=== PATIENT | male | born 1965 | race Caucasian/White ===

== ENCOUNTER 2024-02-23 16:24 | Inpatient (IN) | payer SELFPAY ==
[2024-02-23] VITALS (22 sets, daily range): BP systolic 123–157; BP diastolic 78–103; PULSE 70–107; RESP 13–21; TEMP 36.2–36.8; O2SAT 92–100; BMI 33.9
--- NOTE | 2024-02-23 | XR_ITS ---
WS: [id number] Left hand, C-arm fluoroscopy views, 02/23/2024 Clinical Data: SYL PICS Comparison: Left hand, 02/23/2024 Findings: Dr. Son inserted a radiopaque pin into the radial base of the second metacarpal. XR/XR hand LT 2V [id number] Impression: Insertion of pin into base of left second metacarpal.
--- NOTE | 2024-02-23 16:24 | ECG_ITS ---
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 Measurements Intervals [place] Rate: 94 P: 65 [place]: 166 QRS: -77 QRSD: 89 T: 73 QT: 327 QTc: 410 Interpretive Statements SINUS RHYTHM POSSIBLE LEFT ATRIAL ENLARGEMENT [-0.1mV P-WAVE IN V1/V2] POSSIBLE RIGHT VENTRICULAR CONDUCTION DELAY [RSR (QR) IN V1/V2] INFERIOR MYOCARDIAL INFARCTION , OF INDETERMINATE AGE [40+ ms Q WAVE AND/OR ST/T ABNORMALITY IN II/aVF] No previous ECG available for comparison Electronically Signed On 02-24-2024 19:21:24 CDT by Bhargav Mulligan M.D. [id number]
--- NOTE | 2024-02-23 16:39 | XRR_ITS ---
PROCEDURE INFORMATION: Exam: XR Left Hand Exam date and time: 02/23/2024 5:11 PM Age: 59 years old Clinical indication: Injury or trauma; Other: Tractor; Blunt trauma (contusions or hematomas); Hand; Left; Additional info: Trauma PT presents after tractor incident. Patient was pinned and bent at the hip for approximately 10 minutes before help was able to get him unpinned. Patient states he was pulling a log in small tractor, when log caught and he was flipped backwards while riding tractor. Patient states that his ribs and back are in pain. Patient also has deformity to left forearm and laceration to left thumb. Bandaged by EMS TECHNIQUE: Imaging protocol: Radiologic exam of the left hand. Views: 3 or more views. COMPARISON: CR ([facility], ) 02/23/2024 5:11 PM FINDINGS: Bones/joints: Nondisplaced fracture through the base of the thumb. Soft tissues: Wound noted at the wrist. XR/XR hand LT min 3V* [id number] IMPRESSION: Nondisplaced fracture through the base of the thumb.
--- NOTE | 2024-02-23 16:39 | XRR_ITS ---
PROCEDURE INFORMATION: Exam: XR Left Forearm Exam date and time: 02/23/2024 5:11 PM Age: 59 years old Clinical indication: Injury or trauma; Other: Tractor; Blunt trauma (contusions or hematomas); Arm, lower; Left; Additional info: Trauma PT presents after tractor incident. Patient was pinned and bent at the hip for approximately 10 minutes before help was able to get him unpinned. Patient states he was pulling a log in small tractor, when log caught and he was flipped backwards while riding tractor. Patient states that his ribs and back are in pain. Patient also has deformity to left forearm and laceration to left thumb. Bandaged by EMS TECHNIQUE: Imaging protocol: Radiologic exam of the left forearm. Views: 2 views. COMPARISON: CR ([facility], ) 02/23/2024 5:11 PM FINDINGS: Bones/joints: Normal. Soft tissues: Wound along the wrist and distal forearm. XR/XR forearm LT 2V [id number] IMPRESSION: No acute osseous abnormalities.
--- NOTE | 2024-02-23 16:39 | CTR_ITS ---
PROCEDURE INFORMATION: Exam: CT Thoracic Spine Without Contrast Exam date and time: 02/23/2024 5:22 PM Age: 59 years old Clinical indication: Injury or trauma; Other: Tractor; Blunt trauma (contusions or hematomas); Additional info: Trauma PT presents after tractor incident. Patient was pinned and bent at the hip for approximately 10 minutes before help was able to get him unpinned. Patient states he was pulling a log in small tractor, when log caught and he was flipped backwards while riding tractor. Patient states that his ribs and back are in pain. Patient also has deformity to left forearm and laceration to left thumb. Bandaged by EMS TECHNIQUE: Imaging protocol: Computed tomography of the thoracic spine without contrast. Radiation optimization: All CT scans at this facility use at least one of these dose optimization techniques: automated exposure control; mA and/or kV adjustment per patient size (includes targeted exams where dose is matched to clinical indication); or iterative reconstruction. COMPARISON: CT chest abdpel w/*[id number] 02/23/2024 5:22 PM RADIATION DOSE METRICS: Total DLP (mGy-cm): 1174 FINDINGS: Bones/joints: No acute fracture. Normal alignment. No significant disc bulge or herniation. No severe spinal canal stenosis. No significant neural foraminal narrowing. Soft tissues: Unremarkable. CT/CT thoracic spin wo con* [id number] IMPRESSION: No acute findings.
--- NOTE | 2024-02-23 16:39 | CTR_ITS ---
PROCEDURE INFORMATION: Exam: CT Lumbar Spine Without Contrast Exam date and time: 02/23/2024 5:22 PM Age: 59 years old Clinical indication: Injury or trauma; Other: Tractor; Blunt trauma (contusions or hematomas); Additional info: Trauma PT presents after tractor incident. Patient was pinned and bent at the hip for approximately 10 minutes before help was able to get him unpinned. Patient states he was pulling a log in small tractor, when log caught and he was flipped backwards while riding tractor. Patient states that his ribs and back are in pain. Patient also has deformity to left forearm and laceration to left thumb. Bandaged by EMS TECHNIQUE: Imaging protocol: Computed tomography of the lumbar spine without contrast. Radiation optimization: All CT scans at this facility use at least one of these dose optimization techniques: automated exposure control; mA and/or kV adjustment per patient size (includes targeted exams where dose is matched to clinical indication); or iterative reconstruction. COMPARISON: CT chest abdpel w/*[id number] 02/23/2024 5:22 PM RADIATION DOSE METRICS: Total DLP (mGy-cm): 864.8 FINDINGS: Bones/joints: No acute fracture. Normal alignment. No significant disc bulge or herniation. No severe spinal canal stenosis. Soft tissues: Unremarkable. CT/CT lumbar spine wo con* [id number] IMPRESSION: No acute findings.
--- NOTE | 2024-02-23 16:39 | XRR_ITS ---
PROCEDURE INFORMATION: Exam: XR Chest Exam date and time: 02/23/2024 5:35 PM Age: 59 years old Clinical indication: Injury or trauma; Blunt trauma (contusions or hematomas); Injury date: 02/23/24; Patient HX: Tractor rolled over on him; C/O chest, abd, back and left arm pain; TECHNIQUE: Imaging protocol: Radiologic exam of the chest. Views: 1 view. COMPARISON: CT chest abdpel w/*[id number] 02/23/2024 5:22 PM FINDINGS: Lungs: Unremarkable. No consolidation. Pleural spaces: Unremarkable. No pleural effusion. No pneumothorax. Heart/Mediastinum: Unremarkable. No cardiomegaly. Bones/joints: Unremarkable. XR/XR chest 1V portable [id number] IMPRESSION: No acute findings.
--- NOTE | 2024-02-23 16:39 | CTR_ITS ---
PROCEDURE INFORMATION: Exam: CT Chest With Contrast; Diagnostic Exam date and time: 02/23/2024 5:22 PM Age: 59 years old Clinical indication: Injury or trauma; Other: Tractor; Generalized; Blunt trauma (contusions or hematomas); Additional info: Trauma PT presents after tractor incident. Patient was pinned and bent at the hip for approximately 10 minutes before help was able to get him unpinned. Patient states he was pulling a log in small tractor, when log caught and he was flipped backwards while riding tractor. Patient states that his ribs and back are in pain. Patient also has deformity to left forearm and laceration to left thumb. Bandaged by EMS TECHNIQUE: Imaging protocol: Diagnostic computed tomography of the chest with contrast. Radiation optimization: All CT scans at this facility use at least one of these dose optimization techniques: automated exposure control; mA and/or kV adjustment per patient size (includes targeted exams where dose is matched to clinical indication); or iterative reconstruction. Contrast material: OMNI 350; Contrast volume: 100 ml; Contrast route: INTRAVENOUS (IV); COMPARISON: CT thoracic spin wo con* [id number] 02/23/2024 5:22 PM RADIATION DOSE METRICS: Total DLP (mGy-cm): 1552.3 FINDINGS: Lungs: Unremarkable. No consolidation. No masses. Pleural spaces: Unremarkable. No pneumothorax. No pleural effusion. Heart: Unremarkable. No cardiomegaly. No pericardial effusion. Lymph nodes: Unremarkable. No enlarged lymph nodes. Vasculature: Unremarkable. No aortic aneurysm. Bones/joints: Unremarkable. No acute fracture. Soft tissues: Unremarkable. PROCEDURE INFORMATION: Exam: CT Abdomen And Pelvis With Contrast Exam date and time: 02/23/2024 5:22 PM Age: 59 years old Clinical indication: Injury or trauma; Other: Tractor; Generalized; Blunt trauma (contusions or hematomas); Additional info: Trauma PT presents after tractor incident. Patient was pinned and bent at the hip for approximately 10 minutes before help was able to get him unpinned. Patient states he was pulling a log in small tractor, when log caught and he was flipped backwards while riding tractor. Patient states that his ribs and back are in pain. Patient also has deformity to left forearm and laceration to left thumb. Bandaged by EMS TECHNIQUE: Imaging protocol: Computed tomography of the abdomen and pelvis with contrast. Radiation optimization: All CT scans at this facility use at least one of these dose optimization techniques: automated exposure control; mA and/or kV adjustment per patient size (includes targeted exams where dose is matched to clinical indication); or iterative reconstruction. Contrast material: OMNI 350; Contrast volume: 100 ml; Contrast route: INTRAVENOUS (IV); COMPARISON: CT lumbar spine wo con* [id number] 02/23/2024 5:22 PM RADIATION DOSE METRICS: Total DLP (mGy-cm): 1552.3 FINDINGS: Liver: Normal. No mass. Gallbladder and biliary ducts: Normal. No calcified stones. No ductal dilation. Pancreas: Normal. No ductal dilation. Spleen: Normal. No splenomegaly. Adrenal glands: Normal. No mass. Kidneys and ureters: A couple cysts noted in the left kidney measuring up to 1.5 cm in size. No hydronephrosis. Stomach and bowel: Unremarkable. No obstruction. No mucosal thickening. Appendix: No evidence of appendicitis. Intraperitoneal space: Unremarkable. No free air. No significant fluid collection. Vasculature: Unremarkable. No abdominal aortic aneurysm. Lymph nodes: Unremarkable. No enlarged lymph nodes. Urinary bladder: Unremarkable as visualized. Reproductive: Unremarkable as visualized. Bones/joints: No acute fracture. Soft tissues: Unremarkable. CT/CT chest abdpel w/*[id number] IMPRESSION: No acute traumatic intrathoracic findings. IMPRESSION: No acute traumatic intra-abdominal findings. COMMENTS: Consistent with the [employer]'s Incidental Findings Committee white paper (J Am Ezequiel Radiol 2018): Any incidental renal lesion less than 1 cm or classified as too small to characterize, or any incidental cystic renal lesion characterized as simple-appearing, is likely benign. No follow-up imaging is recommended for these lesions per consensus recommendations based on imaging criteria.
--- NOTE | 2024-02-23 16:43 | CTR_ITS ---
PROCEDURE INFORMATION: Exam: CT Head Without Contrast Exam date and time: 02/23/2024 5:17 PM Age: 59 years old Clinical indication: Injury or trauma; Other: Tractor; Blunt trauma (contusions or hematomas); Additional info: Trauma PT presents after tractor incident. Patient was pinned and bent at the hip for approximately 10 minutes before help was able to get him unpinned. Patient states he was pulling a log in small tractor, when log caught and he was flipped backwards while riding tractor. Patient states that his ribs and back are in pain. Patient also has deformity to left forearm and laceration to left thumb. Bandaged by EMS TECHNIQUE: Imaging protocol: Computed tomography of the head without contrast. Radiation optimization: All CT scans at this facility use at least one of these dose optimization techniques: automated exposure control; mA and/or kV adjustment per patient size (includes targeted exams where dose is matched to clinical indication); or iterative reconstruction. COMPARISON: CT cervical spin wo con* [id number] 02/23/2024 5:17 PM RADIATION DOSE METRICS: Total DLP (mGy-cm): 1142.2 FINDINGS: Brain: No hemorrhage. No edema. Moderate diffuse cerebral atrophy and mild sequela of chronic small vessel ischemic disease. No mass effect. Cerebral ventricles: No ventriculomegaly. Paranasal sinuses: Visualized sinuses are unremarkable. No fluid levels. Mastoid air cells: Visualized mastoid air cells are well aerated. Bones: Unremarkable. No acute fracture. Soft tissues: Unremarkable. CT/CT head wo con* [id number] IMPRESSION: No acute intracranial abnormality.
--- NOTE | 2024-02-23 16:43 | CTR_ITS ---
PROCEDURE INFORMATION: Exam: CT Cervical Spine Without Contrast Exam date and time: 02/23/2024 5:17 PM Age: 59 years old Clinical indication: Injury or trauma; Other: Tractor; Blunt trauma TECHNIQUE: Imaging protocol: Computed tomography of the cervical spine without contrast. Radiation optimization: All CT scans at this facility use at least one of these dose optimization techniques: automated exposure control; mA and/or kV adjustment per patient size (includes targeted exams where dose is matched to clinical indication); or iterative reconstruction. COMPARISON: CT head wo con* [id number] 02/23/2024 5:17 PM RADIATION DOSE METRICS: Total DLP (mGy-cm): 541.6 FINDINGS: Bones: No acute fracture. Normal alignment. No severe spinal canal stenosis. Lungs: Lung apices are normal. Soft tissues: Unremarkable. CT/CT cervical spin wo con* [id number] IMPRESSION: No acute findings.
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
[2024-02-23] MEDS: sodium chloride 0.9% 1,000 ML 999 ML IV (16:46)
[2024-02-23] MEDS: HYDROmorphone 1 mg/mL INJ 1 mL 0.5 MG IVP (16:47)
[2024-02-23] MEDS: tetanus-dipt-pertussis 0.5 mL SDV IM (16:48)
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
[2024-02-23 17:16] LABS: Basophils # 0.1 10^3/uL (0.0-0.1); Basophils % 0.3 %; Eosinophils % 0.2 %; Hematocrit 40.8 % (37-53); Lymphocytes # 0.8 10^3/uL (0.8-4.8); Lymphocytes % 3.8 %; Mean Corpuscular HGB Conc 34.3 g/dL (30-55); Mean Corpuscular Hemoglobin 29.7 pg (27-33); Mean Corpuscular Volume 86.6 fl (82-101); Monocytes # 1.3 10^3/uL (0.2-0.9); Monocytes % 6.4 %; Neutrophils # 18.25 10^3/uL (1.8-7.7); Neutrophils % 88.8 %; Nucleated Red Blood Cells % 0 %; Platelet Count 285 10^3/cmm (157-399); Red Blood Count 4.71 10^6/uL (3.85-5.65); Red Cell Distribution Width 12.7 % (12.1-15.1); White Blood Count 20.56 10^3/uL (3.29-11.43)
[2024-02-23] MEDS: iohexol 350 mg/mL 500 mL Btl (per mL) IV (17:30)
[2024-02-23 17:36] LABS: Lactic Sepsis W/Reflex 1.1 mmol/L (0.5-2.2)
[2024-02-23 17:38] LABS: Alanine Aminotransferase 20 U/L (0-41); Albumin Level 3.9 g/dL (3.5-5.2); Alkaline Phosphatase 108 U/L (40-130); Anion Gap 11.5 (5-19); Aspartate Amino Transferase 33 U/L (0-40); Blood Urea Nitrogen 16 mg/dL (6-20); Calcium 7.9 mg/dL (8.5-10.5); Carbon Dioxide 22 mmol/L (22-29); Chloride 106 mmol/L (98-107); Creatinine Clr Calc Pharmacy 96.6557; Globulin 2.4 g/dL (1.3-4.6); Glomerular Filtration Rate 86.7 mL/min (90-130); Glucose 136 mg/dL (65-115); Osmolality Calculated 285 mOsm/kg (285-295); Potassium 3.5 mmol/L (3.5-5.1); Sodium 136 mmol/L (136-145); Total Bilirubin 0.6 mg/dL (0.15-1.2); Total Protein 6.3 g/dL (6.6-8.7)
[2024-02-23 17:39] LABS: Creatine Phosphokinase 1147 U/L (39-308)
--- NOTE | 2024-02-23 17:46 | PC.NURSE ---
PATIENT LEFT HAND CLEANED WITH NORMAL SALINE AND GAUZE. LEFT TO SOAK TO REMOVE MORE DRIED BLOOD.
[2024-02-23] MEDS: ceFAZolin 2,000 MG in sodium chloride 0.9% (plus) 50 ML 100 MG IV (18:08)
[2024-02-23] MEDS: sodium chloride 0.9% 1,000 ML 150 ML IV (18:08)
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
[2024-02-23 20:31] LABS: Procalcitonin 0.07 ng/mL (0-0.5)
[2024-02-23 20:38] LABS: INR 0.97 (0.8-1.2); Lactic Sepsis W/Reflex 1.7 mmol/L (0.5-2.2)
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
--- NOTE | 2024-02-23 20:43 | P.ANESASSM_ITS ---
Pre-Anesthetic Assessment Height/Weight: Height 1.68 m Weight 95.254 kg Temp Pulse Resp BP Pulse Ox O2 Del Method 98.3 F 88 17 146/87 96 Room Air 02/23/24 16:33 02/23/24 19:30 02/23/24 19:30 02/23/24 19:45 02/23/24 19:30 02/23/24 19:28 Operation Date: 02/23/24 20:40 Proposed Procedures p Incision & Drainage Upper Extremity(Left) - Ji [place], DO Familial anesthetic complications: None Was Beta Bernabe taken within 24 hours: N/A Was Clonidine taken within 24 hours: N/A Last intake: 2 days ago Social Tobacco and No alcohol Exam alert, oriented x 3, clear to auscultation bilaterally and regular rate & rhythm Airway Mallampati: Class II Dentition: other (no teeth) Anesthetic Plan ASA status: 2E Anesthesia: General Risk of > 500 ml blood loss (7ml/kg in children): No Medications/Allergies Allergies Allergy/AdvReac Type Severity Reaction Status Date / Time No Known Allergies Allergy Verified 02/23/24 16:31 Current Medications Generic Name Dose Route Start Last Admin Trade Name Freq PRN Reason Stop Dose Admin Sodium Chloride 1,000 mls @ 150 mls/hr 02/23/24 18:00 02/23/24 18:08 Sodium Chloride 0.9% IV 150 mls/hr .Q6H40M BERTRAM Administration Data Anesthesia 02/23/24 17:07 02/23/24 17:07 Short CBC 02/23/24 Range/Units 17:07 WBC 20.56 H (3.29-11.43) 10^3/uL Hgb 14.00 (11.27-16.99) g/dL Hct 40.8 (37-53) % MCV 86.6 (82-101) fl Plt Count 285 (157-399) 10^3/cmm Neut % (Auto) 88.8 % Neut # (Auto) 18.25 H (1.8-7.7) 10^3/uL BMP 02/23/24 17:07 Sodium 136 Potassium 3.5 Chloride 106 Carbon Dioxide 22 BUN 16 Creatinine 0.9 Glucose 136 H Calcium 7.9 L Cardiac Enzymes 02/23/24 Range/Units 17:07 Creatine Kinase 1147 H* (39-308) U/L Liver Function 02/23/24 Range/Units 17:07 Total Bilirubin 0.6 (0.15-1.2) mg/dL AST 33 (0-40) U/L ALT 20 (0-41) U/L Alkaline Phosphatase 108 (40-130) U/L Albumin 3.9 (3.5-5.2) g/dL Blood Bank 02/23/24 17:07 Blood Type O Positive Rho(D) Type Rh positive Antibody Screen Negative Coags 02/23/24 20:11 PT 13.20 INR 0.97 Microbiology 02/23/24 20:11 Blood Culture - Preliminary Blood SPECIMEN COLLECTED 02/23/24 20:13 Blood Culture - Preliminary Blood SPECIMEN COLLECTED Cardiac Studies: 2 No Data to Display
[2024-02-23] MEDS: ceFAZolin 1,000 mg SDV 2000 MG IVP (21:20)
--- NOTE | 2024-02-23 23:11 | P.BOP_ITS ---
Date of Procedure: [02/23/2024] Surgeon: Ji Son DO Student Records Specialist(s): Jayme Son PA-C Procedure(s) performed: Left wrist and forearm I&D (18 cm x 8 cm x 4 cm (debridement of skin subcutaneous tissue fascia and tendon) Left wrist de Quervain's release Left second metacarpal closed reduction and percutaneous pinning Findings of the procedure(s): Patient was taken back to the OR and underwent I&D extensive I&D for evaluation of subcutaneous air. Patient did have a straight stripping of the gloving of the thenar musculature off of the first metacarpal. This created a tunnel all the way into the proximal portion of the carpal tunnel. Within this wound there were 2 large muscle bellies attached with tendon these were the FDS tendons of the ring and small finger. These were completely stripped with tearing directly off of the muscle bellies proximally. I extended my incision proximally and then created a dissection in the volar plane performing a standard FCR approach I found FCR mobilized this which was intact open the floor the sheath and then identified the FPL which was intact I then mobilized and then once again found the 2 superficial FDS tendons to the ring and small which were completely tore from the muscle belly and unable to be repaired prior to transecting these I have further my dissection and identified the FDP tendons to the small ring middle and index finger which were all intact which would allow for standard function of the hand being to profundus fingers to the ring and the small. As result given this was completely stripped and devitalized of all muscle and unable to be repaired and did not want this to scar within the carpal tunnel where this was currently lying I then subsequently pulled this under tension and transected the FDS to the ring and small finger. At this point I then thoroughly irrigated the wound bed 3 L normal saline. I then identified the nondisplaced first base of the first metacarpal this was not unstable and as result was left alone I then identified the large fracture fragment on the dorsal and radial aspect of the base of the second metacarpal this was out allowable being reduced manually and given its displacement I utilized a 0.45 K wire while holding the reduction and then pinned this in place. Underwent closed reduction percutaneous pinning second metacarpal. Splint was applied patient was awakened from anesthesia and taken to PACU in stable condition. Estimated blood loss: 10 mL Specimen(s) removed: None Post-operative diagnosis: Crush injury left wrist and forearm with Butts Jignesh lesion, left hand second metacarpal fracture, left hand base of first metacarpal fracture, multiple carpal bone fractures, FDS tendon lacerations proximal to zone 5 within the muscle bellies for the ring and small finger
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
--- NOTE | 2024-02-23 23:55 | PM.PACU ---
Documented by User: SADIE Bacon 02/24/24 00:03 PACU note Narrative: Patient is a 59-year-old male that just underwent a left forearm and wrist irrigation and debridement. Patient transferred to PACU in stable condition. Pain is well controlled. Dressing on hand is dry and in place. Patient's fingers are warm and well-perfused. normal cap refill under 2 seconds. Unable to assess sensation or motor due to residual anesthesia Exam: somnolent, arousable Disposition: admitted Documented by User: Ji Son DO 02/24/24 08:32 PACU note Narrative: Patient is a 59-year-old male that just underwent a left forearm and wrist irrigation and debridement. Patient transferred to PACU in stable condition. Pain is well controlled. Dressing on hand is dry and in place. Patient's fingers are warm and well-perfused. normal cap refill under 2 seconds. 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 Will reassess him tomorrow.
[2024-02-24] VITALS (13 sets, daily range): BP systolic 105–147; BP diastolic 66–95; PULSE 79–106; RESP 13–20; TEMP 36.2–36.8; O2SAT 93–98; BMI 33.9
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
[2024-02-24] MEDS: sodium chloride 0.9% 1,000 ML 150 ML IV ×2 (01:45→09:00)
[2024-02-24] MEDS: ketorolac 30 mg/mL INJ 15 MG IVP ×4 (01:45→17:59)
[2024-02-24 02:49] LABS: Amphetamines Screen Urine Positive (Negative); Barbiturates Screen Urine Negative (Negative); Benzodiazepines Screen Urine Positive (Negative); Cocaine Screen Urine Negative (Negative); Opiate Screen Urine Positive (Negative); PCP Screen Urine Negative (Negative); THC Screen Urine Positive (Negative)
[2024-02-24 03:07] LABS: Add Urine Microscopic? YES; Bacteria Urine 1+ /hpf; Bilirubin Urine 1+ (Negative); Blood Urine Neg (Negative); Glucose Urine UA Trace (Normal); Hyaline Casts Urine 0-4 /lpf; Ketones Urine Negative (Negative); Leukocyte Esterase Urine Negative (Negative); Nitrate Urine Negative (Negative); Protein Urine Trace (Negative); RBC Urine 0-4 /hpf (0-2); Sperm Urine 1+ /hpf; Squamous Epithelial Cell Urine 0-4 /hpf (0-5); Urine Appearance Cloudy (CLEAR); Urine Color Dark Yellow (Yellow); Urobilinogen Urine Neg (Negative); WBC Urine 0-4 /hpf (0-5); pH Urine 5 (5-7)
[2024-02-24 03:37] LABS: Basophils % 0.1 %; Hematocrit 41.5 % (37-53); Lymphocytes # 0.6 10^3/uL (0.8-4.8); Lymphocytes % 4.7 %; Mean Corpuscular HGB Conc 32.3 g/dL (30-55); Mean Corpuscular Hemoglobin 28.9 pg (27-33); Mean Corpuscular Volume 89.4 fl (82-101); Monocytes # 0.5 10^3/uL (0.2-0.9); Monocytes % 4.3 %; Neutrophils # 11.04 10^3/uL (1.8-7.7); Neutrophils % 90.6 %; Nucleated Red Blood Cells % 0 %; Platelet Count 263 10^3/cmm (157-399); Red Blood Count 4.64 10^6/uL (3.85-5.65); Red Cell Distribution Width 13.1 % (12.1-15.1); White Blood Count 12.18 10^3/uL (3.29-11.43)
[2024-02-24 04:01] LABS: Alanine Aminotransferase 22 U/L (0-41); Albumin Level 3.8 g/dL (3.5-5.2); Alkaline Phosphatase 106 U/L (40-130); Anion Gap 14.6 (5-19); Aspartate Amino Transferase 45 U/L (0-40); Blood Urea Nitrogen 13 mg/dL (6-20); Calcium 7.8 mg/dL (8.5-10.5); Carbon Dioxide 20 mmol/L (22-29); Chloride 106 mmol/L (98-107); Creatinine Clr Calc Pharmacy 96.6557; Globulin 2.5 g/dL (1.3-4.6); Glomerular Filtration Rate 86.7 mL/min (90-130); Glucose 188 mg/dL (65-115); Osmolality Calculated 287 mOsm/kg (285-295); Potassium 4.6 mmol/L (3.5-5.1); Sodium 136 mmol/L (136-145); Total Bilirubin 0.6 mg/dL (0.15-1.2); Total Protein 6.3 g/dL (6.6-8.7)
[2024-02-24 04:05] LABS: Creatine Phosphokinase 1962 U/L (39-308)
[2024-02-24] MEDS: water for injection-sterile 20 ML 6 ML ×2 (04:55→21:36)
[2024-02-24] MEDS: ceFAZolin 2,000 mg SDV 2000 MG IVP ×3 (04:55→21:35)
[2024-02-24] MEDS: oxyCODONE 5 mg IR Tab/Cap PO ×3 (06:47→18:03)
[2024-02-24] MEDS: TRAMadol 50 mg Tablet PO (09:03)
[2024-02-24 10:06] LABS: Creatine Phosphokinase 1904 U/L (39-308)
--- NOTE | 2024-02-24 10:15 | P.PN_ITS ---
Subjective 2 Subjective: Patient seen and examined this morning. Pain is controlled with medications. He is able to wiggle all of his fingers and sensations intact light touch distally. At this point in time he is currently being monitored for rhabdo myelitis as a CK was around 1900 today. This will continue to be monitored spoke with hospitalist and planning for additional day of hospitalization for monitoring for pain control as well as rhabdomyolysis Vitals/I&O/Wt Last Vital Signs Temp 98.3 F 02/24/24 05:14 Pulse 106 H 02/24/24 07:47 Resp 17 02/24/24 07:47 BP 141/90 02/24/24 07:47 Pulse Ox 96 02/24/24 07:47 O2 Del Method Room Air 02/24/24 07:47 O2 Flow Rate 6 02/23/24 23:47 02/23/24 02/24/24 02/24/24 22:59 06:59 14:59 Intake Total 1050 / 1050 1300 / 2350 1020 / 1020 Output Total 840 / 840 Balance 1050 / 1050 460 / 1510 1020 / 1020 Weight last 48 hrs Weight 210 lb Weight 210 lb Physical Exam 2 Narrative: Dressing order placed to the left upper extremity with clean dry and intact Jacinto wrap was slightly tight and subsequently loosened. Splint left arm in place. Drain was left in place today just to allow for an additional day for mild drainage patient's hand is warm well-perfused when Jacinto wrap was loosened was able to palpate compartments which are soft and compressible. His fingertips are warm well-perfused brisk capillary refill less than 2 seconds sensations intact light touch distally he is able to wiggle all 5 digits. Unable to palpate pulse secondary to splint. Patient able to tolerate passive range of motion of the digits with no pain or discomfort or pain out of proportion. Data 02/24/24 03:13 02/24/24 03:13 Micro: Microbiology 02/23/24 20:11 Blood Culture - Preliminary Blood SPECIMEN COLLECTED 02/23/24 20:13 Blood Culture - Preliminary Blood SPECIMEN COLLECTED A&P Assessment and plan (1) Fracture of base of first metacarpal: Qualifiers: Encounter type: initial encounter Fracture alignment: nondisplaced F racture type: open Laterality: left (2) Fracture of second metacarpal bone: (3) Elevated CK: (4) Butts Jignesh lesion: (5) Crush injury arm: (6) Polysubstance abuse: Plan Postoperative day 1 left wrist and forearm irrigation and debridement. CRPP second metacarpal Splint on in place Jacinto wrap loosened today Plan to pull Ligia drain tomorrow Elevation and ice PT/OT Encourage wiggling her fingers as well as elbow range of motion Continue with pain control Internal medicine on board as primary Prophylactic antibiotics Orthopedics will continue to follow Attestations 2 Medical Necessity Statement*: Ongoing care status post crush injury upper extremity at wrist and forearm, patient has elevated CK being managed by hospitalist Coding Level of Care Code Acute Code for [facility] Diagnoses Fracture of base of first metacarpal S62.233A Encounter type: initial encounter Fracture alignment: nondisplaced Fracture type: open Laterality: left Fracture of second metacarpal bone S62.308A Elevated CK R74.8 Butts Jignesh lesion T14.8XXA Crush injury arm S47.9XXA Polysubstance abuse F19.10 Time Spent (min) 20
[2024-02-24] MEDS: nicotine 21 mg Patch 1 PATCH TRANSDERMA (10:45)
[2024-02-24] MEDS: HYDROmorphone 1 mg/mL INJ 1 mL 0.2 MG IVP (10:45)
--- NOTE | 2024-02-24 11:23 | P.PN_ITS ---
Subjective 2 Subjective: Repeat CPK around 1900 Plan to keep patient in the hospital for pain management and monitor of rhabdomyolysis Monitor for compartment syndrome Drain in place Patient complaining of pain added Dilaudid 0.2 mg every 4 hours Vitals/I&O/Wt Last Vital Signs Temp 97.7 F 02/24/24 10:59 Pulse 91 02/24/24 10:59 Resp 17 02/24/24 10:59 BP 105/69 02/24/24 10:59 Pulse Ox 94 02/24/24 10:59 O2 Del Method Room Air 02/24/24 10:59 O2 Flow Rate 6 02/23/24 23:47 02/23/24 02/24/24 02/24/24 22:59 06:59 14:59 Intake Total 1050 / 1050 1300 / 2350 1020 / 1020 Output Total 840 / 840 Balance 1050 / 1050 460 / 1510 1020 / 1020 Weight last 48 hrs Weight 95.254 kg Weight 95.254 kg Physical Exam 2 Narrative: Patient awake and alert Left arm covered with dressing No sign of vascular compromise noted of left hand Awake and alert Nonfocal neuroexam Hemodynamically stable Currently room air Data 02/24/24 03:13 02/24/24 03:13 Micro: Microbiology 02/23/24 20:11 Blood Culture - Preliminary Blood SPECIMEN COLLECTED 02/23/24 20:13 Blood Culture - Preliminary Blood SPECIMEN COLLECTED A&P Assessment and plan (1) Leukocytosis: (2) Fracture of base of first metacarpal: Qualifiers: Encounter type: initial encounter Fracture alignment: nondisplaced F racture type: open Laterality: left (3) Fracture of second metacarpal bone: (4) Elevated CK: (5) Butts Jignesh lesion: (6) Crush injury arm: (7) Polysubstance abuse: Plan Crush injury of left arm and hand Contusion of bone Status post left wrist and forearm I&D left second metacarpal closed reduction percutaneous pinning Drain in place Continue vancomycin and Zosyn Muscle injury/crush injury Continue normal saline at 100 mill per hour Monitor CPK Monitor for signs of compartment syndrome Polysubstance abuse Positive for marijuana and methamphetamine No active signs of encephalopathy Spoke with Dr. Son's plan to release patient on Sunday if remains stable Full code Nicotine patch added Full code Attestations 2 Medical Necessity Statement*: Discharge likely Sunday Diagnoses Leukocytosis D72.829 Fracture of base of first metacarpal S62.233A Encounter type: initial encounter Fracture alignment: nondisplaced Fracture type: open Laterality: left Fracture of second metacarpal bone S62.308A Elevated CK R74.8 Butts Jignesh lesion T14.8XXA Crush injury arm S47.9XXA Polysubstance abuse F19.10
[2024-02-24] MEDS: piperacillin-tazobactam 3.375 GM in sodium chloride 0.9% (plus) 50 ML IV ×2 (12:27→19:52)
[2024-02-24] MEDS: water for injection-sterile 20 ML 100 ML (12:27)
[2024-02-24] MEDS: ondansetron 2 mg/ML SDV 2 mL 4 MG IVP ×2 (12:42→21:54)
[2024-02-24] MEDS: metoclopramide 5 mg/mL SDV 2 mL IVP (16:23)
[2024-02-24] MEDS: sodium chloride 0.9% 1,000 ML 100 ML IV (16:25)
[2024-02-24] MEDS: pantoprazole 40 mg SDV IVP (19:53)
[2024-02-25] VITALS: BP 114/70; PULSE 111; RESP 18; TEMP 36.8; O2SAT 95
[2024-02-25] MEDS: ketorolac 30 mg/mL INJ 15 MG IVP ×2 (00:37→06:16)
[2024-02-25 01:00] VITALS: BP 114/70; PULSE 111; RESP 18; TEMP 36.8; O2SAT 95
[2024-02-25] MEDS: sodium chloride 0.9% 1,000 ML 100 ML IV (02:09)
[2024-02-25 04:00] VITALS: BP 131/85; PULSE 112; RESP 18; TEMP 36.9; O2SAT 98
[2024-02-25] MEDS: piperacillin-tazobactam 3.375 GM in sodium chloride 0.9% (plus) 50 ML IV (04:06)
[2024-02-25 05:27] LABS: Basophils % 0.4 %; Eosinophils # 0.2 10^3/uL (0.0-0.8); Eosinophils % 1.3 %; Hematocrit 39.3 % (37-53); Lymphocytes # 1.6 10^3/uL (0.8-4.8); Lymphocytes % 14.6 %; Mean Corpuscular Hemoglobin 28.9 pg (27-33); Mean Corpuscular Volume 93.1 fl (82-101); Mean Platelet Volume 9.3 fL (7.4-10.4); Monocytes # 0.9 10^3/uL (0.2-0.9); Monocytes % 8.1 %; Neutrophils # 8.47 10^3/uL (1.8-7.7); Neutrophils % 75.1 %; Nucleated Red Blood Cells % 0 %; Platelet Count 224 10^3/cmm (157-399); Red Blood Count 4.22 10^6/uL (3.85-5.65); Red Cell Distribution Width 13.4 % (12.1-15.1); White Blood Count 11.27 10^3/uL (3.29-11.43)
[2024-02-25 05:41] LABS: Blood Urea Nitrogen 12 mg/dL (6-20); Calcium 7.6 mg/dL (8.5-10.5); Carbon Dioxide 21 mmol/L (22-29); Chloride 107 mmol/L (98-107); Creatinine Clr Calc Pharmacy 124.2717; Glomerular Filtration Rate 115.8 mL/min (90-130); Glucose 95 mg/dL (65-115); Osmolality Calculated 280 mOsm/kg (285-295); Sodium 135 mmol/L (136-145)
[2024-02-25 05:44] LABS: Anion Gap 11.1 (5-19); Potassium 4.1 mmol/L (3.5-5.1)
[2024-02-25 07:32] VITALS: BP 150/70; PULSE 105; RESP 17; O2SAT 96
[2024-02-25] MEDS: HYDROmorphone 1 mg/mL INJ 1 mL 0.2 MG IVP (08:22)
--- NOTE | 2024-02-25 09:00 | PC.NURSE ---
At bedside to assist Dr. Son in dressing change and drain removal. Dr. Son removed outer DEISY wraps and ABD pad, removed drain, and covered site with ABD and clean DEISY wraps. He provided education on elevation and ice to control swelling and pain, even after d/c. He asked that patient f/u with him in 2 weeks to which patient was in agreement. I informed patient that Dr. Watts was also going to f/u with him prior to d/c and he is in agreement with that as well. He denies further questions or concerns at this time.
--- NOTE | 2024-02-25 09:05 | P.PN_ITS ---
Subjective 2 Subjective: Patient seen and examined this morning I was contacted that he was threatening to leave AMA currently does have a [place] drain. Expressed importance of him being cleared by medicine prior to discharge. [place] drain was pulled today without any issues or complications he is tolerated this well. He is cleared from an orthopedic standpoint for discharge Vitals/I&O/Wt Last Vital Signs Temp 98.5 F 02/25/24 04:00 Pulse 105 H 02/25/24 07:32 Resp 17 02/25/24 07:32 BP 150/70 02/25/24 07:32 Pulse Ox 96 02/25/24 07:32 O2 Del Method Room Air 02/25/24 07:32 O2 Flow Rate 6 02/23/24 23:47 02/24/24 02/25/24 02/25/24 22:59 06:59 14:59 Intake Total 361.667 / 2046.667 1043.333 / 3090.000 290 / 290 Balance 361.667 / 2046.667 1043.333 / 3090.000 290 / 290 Weight last 48 hrs Weight 210 lb Weight 210 lb Physical Exam 2 Narrative: Dressing order placed to the left upper extremity with clean dry and intact. [place] drain was subsequently pulled uneventfully without issues. Patient had only minimal bloody drainage appreciated and new ABD dressing was placed dorsally over the dressing I did loosen and remove all of the old Jacnito wrap's and then applied a new clean Jacinto wrap with an ABD over the dressing. While dressing was down I was able to palpate patient's compartments of the forearm as well as the hand these are all soft and compressible. His swelling is improving. His fingertips are warm well-perfused brisk capillary refill less than 2 seconds sensations intact light touch distally he is able to wiggle all 5 digits. Unable to palpate pulse secondary to splint/dressing. Patient able to tolerate passive range of motion of the digits with no pain or discomfort or pain out of proportion. Data 02/25/24 04:56 02/25/24 04:56 Micro: Microbiology 02/23/24 20:13 Blood Culture - Preliminary Blood NEGATIVE TO DATE 02/23/24 20:11 Blood Culture - Preliminary Blood NEGATIVE TO DATE A&P Assessment and plan (1) Fracture of base of first metacarpal: Qualifiers: Encounter type: initial encounter Fracture alignment: nondisplaced F racture type: open Laterality: left (2) Fracture of second metacarpal bone: (3) Elevated CK: (4) Butts Jignesh lesion: (5) Crush injury arm: (6) Polysubstance abuse: Plan Postoperative day 2 left wrist and forearm irrigation and debridement. CRPP second metacarpal Splint on in place [place] drain removed today [place] wrap and ABD applied Elevation and ice PT/OT Encourage wiggling her fingers as well as elbow range of motion Continue with pain control Internal medicine on board as primary Prophylactic antibiotics Patient stable for discharge from orthopedic standpoint. Orthopedic surgery team will sign off patient at this time follow peripherally if there is any questions pertaining patient care for free to contact orthopedics. Patient should maintain splint dressing until follow-up will receive appropriate discharge instructions as well as prescriptions in patient's chart. All questions answered at this time. Patient understands and agrees with current plan. Attestations 2 Medical Necessity Statement*: Ongoing care status post left wrist and forearm crush injury undergoing irrigation debridement and CRPP of second metacarpal base. Coding Level of Care Code Acute Code for [facility] Diagnoses Fracture of base of first metacarpal S62.233A Encounter type: initial encounter Fracture alignment: nondisplaced Fracture type: open Laterality: left Fracture of second metacarpal bone S62.308A Elevated CK R74.8 Butts Jignesh lesion T14.8XXA Crush injury arm S47.9XXA Polysubstance abuse F19.10
--- NOTE | 2024-02-25 11:15 | P.DS_ITS ---
Discharge Providers Date of Admission: 02/24/24 11:48 Date of Discharge: February 25, 2024 Attending Provider at Admission: Ji Son DO Attending Provider at Discharge: Lolly Watts MD Diagnoses at Discharge Discharge Diagnosis (1) Fracture of base of first metacarpal: Status: Acute Qualifiers: Encounter type: initial encounter Fracture alignment: nondisplaced Fracture type: open Laterality: left (2) Fracture of second metacarpal bone: Status: Acute (3) Elevated CK: Status: Acute (4) Butts Jignesh lesion: Status: Acute (5) Crush injury arm: Status: Acute (6) Polysubstance abuse: Status: Acute Reason for Visit Reason for Visit: LEFT ARM PAIN S/P TRACTOR ACCIDENT Hospital Course Hospital Course 59-year-old male without known comorbidities was admitted to the hospital on February 23, 2024 with chief complaints of left hand crush injury when a tractor rolled over him. He had swelling and deformity of the left forearm which were caught under the a part of the tractor. He was found to have subcutaneous air on x-ray. CT scan of the forearm showed subcutaneous air above the fascia communicating near the radial and dorsal wrist where he also had a nondisplaced base of the first metacarpal fracture and a second metacarpal fracture. Orthopedic service was consulted. He underwent I&D of the left forearm which included debridement of the skin subcutaneous tissue fascia and tendon,Left wrist de Quervain's release Left second metacarpal closed reduction and percutaneous pinning. He also had evidence of rhabdomyolysis from his crush injury. His creatinine remained stable. CK at 1900. Patient currently still has a splint in his arm. Kamiah drain was removed today by orthopedics and he has been cleared for discharge from an orthopedic standpoint. Patient is being discharged today in stable state with recommendations to continue antibiotics Augmentin and ciprofloxacin over the next 10 days. Follow- up with orthopedic clinic in 10 days. Hydrocodone/APAP and as needed ibuprofen added for pain relief. Protonix added with ibuprofen to prevent gastritis. Patient instructed to return to the emergency room in case of any warning signs of developing compartment syndrome or infection. These include but are not limited to increased redness swelling, inability to move his fingers, new neurovascular deficits or fever more than 100.4 Fahrenheit. Physical Exam Narrative: General: No acute distress, AO x3 HEENT: PERRLA, pupils bilaterally equal and reactive, pallors not present Chest: Normal vesicular breath sounds, no added sounds, equal good air entry bilaterally CVS: S1-S2 regular, no murmurs, no tachycardia, no gallops, no rubs Abdomen: Soft, nontender, no organomegaly, bowel sounds present Neuro: No focal deficits, no facial deformity, AO x3, power 5/5 in all limbs ext: left arm splint , not opened fr exam, please see orthopedics note Discharge Data Studies Completed and Pending Completed Studies During Hospitalization Category Date Time Status CT cervical spin wo con* [id number] Stat Cat Scan 02/23/24 16:[address] chest abdpel w/*[id number] Stat Cat Scan 02/23/24 16:[address] forearm LT wo con* [id number] Stat Cat Scan 02/23/24 19:[address] head wo con* [id number] Stat Cat Scan 02/23/24 16:[address] head wo con* [id number] Stat Cat Scan 02/24/24 00:[address] lumbar spine wo con* [id number] Stat Cat Scan 02/23/24 16:[address] thoracic spin wo con* [id number] Stat Cat Scan 02/23/24 16:39 Completed XR chest 1V portable [id number] Stat Exams 02/23/24 16:39 Completed XR forearm LT 2V [id number] Stat Exams 02/23/24 16:39 Completed XR hand LT min 3V* [id number] Stat Exams 02/23/24 16:39 Completed Pending at discharge Category Date Time Status C-arm Mini [id number] Routine Exams 02/23/24 20:42 Taken Blood Culture Routine Lab 02/23/24 20:11 Results Retype for Patiets ABO/Rh Routine Lab 02/23/24 17:42 Ordered Radiology Impressions Chest X-Ray 02/23/24 16:39 IMPRESSION: No acute findings. Chest/Abdomen/Pelvis CT 02/23/24 16:39 IMPRESSION: No acute traumatic intrathoracic findings. IMPRESSION: No acute traumatic intra-abdominal findings. COMMENTS: Consistent with the [employer]'s Incidental Findings Committee white paper (J Am Ezequiel Radiol 2018): Any incidental renal lesion less than 1 cm or classified as too small to characterize, or any incidental cystic renal lesion characterized as simple-appearing, is likely benign. No follow-up imaging is recommended for these lesions per consensus recommendations based on imaging criteria. Forearm X-Ray 02/23/24 16:39 IMPRESSION: No acute osseous abnormalities. Hand X-Ray 02/23/24 16:39 IMPRESSION: Nondisplaced fracture through the base of the thumb. Lumbar Spine CT 02/23/24 16:39 IMPRESSION: No acute findings. Thoracic Spine CT 02/23/24 16:39 IMPRESSION: No acute findings. Cervical Spine CT 02/23/24 16:43 IMPRESSION: No acute findings. Forearm CT 02/23/24 19:19 IMPRESSION: Fractures of 1st and 2nd metacarpals , trapezoid, hamate, and triquetral bone. Soft tissue gas appears predominantly within the subcutaneous fat of the lateral and aspect of forearm with much smaller deeper soft tissue gas in the hand , wrist, and distal forearm. Head CT 02/24/24 00:59 IMPRESSION: No acute intracranial abnormality. Laboratory Results WBC 11.27 10^3/uL (3.29-11.43) 02/25/24 04:56 RBC 4.22 10^6/uL (3.85-5.65) 02/25/24 04:56 Hgb 12.20 g/dL (11.27-16.99) 02/25/24 04:56 Hct 39.3 % (37-53) 02/25/24 04:56 MCV 93.1 fl (82-101) 02/25/24 04:56 MCH 28.9 pg (27-33) 02/25/24 04:56 MCHC 31.0 g/dL (30-55) 02/25/24 04:56 RDW 13.4 % (12.1-15.1) 02/25/24 04:56 Plt Count 224 10^3/cmm (157-399) 02/25/24 04:56 MPV 9.3 fL (7.4-10.4) 02/25/24 04:56 Neut % (Auto) 75.1 % 02/25/24 04:56 Lymph % (Auto) 14.6 % 02/25/24 04:56 Johnston % (Auto) 8.1 % 02/25/24 04:56 Eos % (Auto) 1.3 % 02/25/24 04:56 Baso % (Auto) 0.4 % 02/25/24 04:56 Neut # (Auto) 8.47 10^3/uL (1.8-7.7) H 02/25/24 04:56 Lymph # (Auto) 1.6 10^3/uL (0.8-4.8) 02/25/24 04:56 Johnston # (Auto) 0.9 10^3/uL (0.2-0.9) 02/25/24 04:56 Eos # (Auto) 0.2 10^3/uL (0.0-0.8) 02/25/24 04:56 Baso # (Auto) 0.0 10^3/uL (0.0-0.1) 02/25/24 04:56 Nucleated RBC % (auto) 0 % 02/25/24 04:56 Nucleated RBCs # 0.0 /100WBC 02/25/24 04:56 PT 13.20 SECONDS (12.1-14.9) 02/23/24 20:11 INR 0.97 (0.8-1.2) 02/23/24 20:11 Sodium 135 mmol/L (136-145) L 02/25/24 04:56 Potassium 4.1 mmol/L (3.5-5.1) 02/25/24 04:56 Chloride 107 mmol/L (98-107) 02/25/24 04:56 Carbon Dioxide 21 mmol/L (22-29) L 02/25/24 04:56 Anion Gap 11.1 (5-19) 02/25/24 04:56 BUN 12 mg/dL (6-20) 02/25/24 04:56 Creatinine 0.7 mg/dL (0.7-1.2) 02/25/24 04:56 GFR Calculation 115.8 mL/min (90-130) 02/25/24 04:56 Glucose 95 mg/dL (65-115) 02/25/24 04:56 Calculated Osmolality 280 mOsm/kg (285-295) L 02/25/24 04:56 Lactic Acid 1.7 mmol/L (0.5-2.2) 02/23/24 20:11 Calcium 7.6 mg/dL (8.5-10.5) L 02/25/24 04:56 Magnesium 2.0 mg/dL (1.7-2.3) 02/24/24 03:13 Total Bilirubin 0.6 mg/dL (0.15-1.2) 02/24/24 03:13 AST 45 U/L (0-40) H 02/24/24 03:13 ALT 22 U/L (0-41) 02/24/24 03:13 Alkaline Phosphatase 106 U/L (40-130) 02/24/24 03:13 Creatine Kinase 1904 U/L (39-308) H* 02/24/24 09:20 Total Protein 6.3 g/dL (6.6-8.7) L 02/24/24 03:13 Albumin 3.8 g/dL (3.5-5.2) 02/24/24 03:13 Globulin 2.5 g/dL (1.3-4.6) 02/24/24 03:13 Procalcitonin 0.07 ng/mL (0-0.5) 02/23/24 17:07 Urine Color Dark yellow (Yellow) A 02/24/24 02:10 Urine Appearance Cloudy (CLEAR) A 02/24/24 02:10 Urine pH 5 (5-7) 02/24/24 02:10 Ur Specific [place] 1.020 (1.005-1.030) 02/24/24 02:10 Urine Protein Trace (Negative) 02/24/24 02:10 Urine Glucose (UA) Trace (Normal) H 02/24/24 02:10 Urine Ketones Negative (Negative) 02/24/24 02:10 Urine Blood Neg (Negative) 02/24/24 02:10 Urine Nitrate Negative (Negative) 02/24/24 02:10 Urine Bilirubin 1+ (Negative) H 02/24/24 02:10 Urine Urobilinogen Neg mg/dL (Negative) 02/24/24 02:10 Ur Leukocyte Esterase Negative (Negative) 02/24/24 02:10 Urine RBC 0-4 /hpf (0-2) H 02/24/24 02:10 Urine WBC 0-4 /hpf (0-5) H 02/24/24 02:10 Ur Squamous Epith Cells 0-4 /hpf (0-5) H 02/24/24 02:10 Amorphous Sediment Not Reportable 02/24/24 02:10 Urine Bacteria 1+ /hpf (NONE) H 02/24/24 02:10 Hyaline Casts 0-4 /lpf H 02/24/24 02:10 Urine Sperm 1+ /hpf 02/24/24 02:10 Urine Opiates Screen Positive ng/mL (Negative) H 02/24/24 02:10 Ur Barbiturates Screen Negative ng/mL (Negative) 02/24/24 02:10 Ur Phencyclidine Scrn Negative ng/mL (Negative) 02/24/24 02:10 Ur Amphetamines Screen Positive ng/mL (Negative) H 02/24/24 02:10 U Benzodiazepines Scrn Positive ng/mL (Negative) H 02/24/24 02:10 Urine Cocaine Screen Negative ng/mL (Negative) 02/24/24 02:10 U Marijuana (THC) Screen Positive ng/mL (Negative) H 02/24/24 02:10 Blood Type O Positive 02/23/24 17:07 Rho(D) Type Rh positive 02/23/24 17:07 Antibody Screen Negative 02/23/24 17:07 Vitals Last Vital Signs Temp 98.5 F 02/25/24 04:00 Pulse 105 H 02/25/24 07:32 Resp 17 02/25/24 07:32 BP 150/70 02/25/24 07:32 Pulse Ox 96 02/25/24 07:32 O2 Del Method Room Air 02/25/24 07:32 O2 Flow Rate 6 02/23/24 23:47 Discharge Plan Discharge Patient Disposition: Home Condition: Stable Prescriptions: New Calcium 600 + D(3) 600 mg-10 mcg (400 unit) tablet 1 tab PO DAILY 30 Days Qty: 30 0RF amoxicillin-pot clavulanate 875-125 mg tablet 1 tab PO BID 10 Days Qty: 20 0RF Cipro 500 mg tablet 500 mg PO Q12H 10 Days Qty: 20 0RF hydrocodone-acetaminophen 5-325 mg tablet 1 tab PO Q6H PRN (Reason: pain) 7 Days Qty: 28 0RF pantoprazole 40 mg tablet,delayed release (DR/EC) 40 mg PO DAILY 14 Days Qty: 14 0RF ibuprofen 600 mg tablet 600 mg PO Q8H PRN (Reason: pain) 5 Days Qty: 15 0RF Discharge Orders: Discharge Order (Routine); Ordered 02/25/24 Ordered By: Lolly Kathuria Referrals: Ji Son DO [Physician] - 2 weeks Discharge Diet: Advance as tolerated Discharge Activity: Limit activity as instructed Patient Instructions: Opioid Safety Activity Restrictions/Additional Instructions: Postop I&D metacarpal pinning Orthopedic discharge instructions: Patient should be nonweightbearing to the operative extremity Maintain splint until follow-up Okay to loosen Jacinto wrap if this feels too tight. Keep splint clean dry and intact Elevation and ice as needed for pain and swelling Encourage elbow and finger range of motion Take pain medication as prescribed Take antinausea medication as needed Take antibiotic as prescribed for infection prophylaxis Supplement with Citracal vitamin D for bone health and healing Follow-up with Dr. Son in the office in 2 weeks Contact the office for any questions or concerns Discharge Attestations Time Spent in Discharge Care*: greater than 30 min Quality Metrics Clinical Quality Measures [ No reported AMI, CVA or VTE this stay] Coding Level of Care Code Acute Code for [facility] Fwd Diagnoses Fracture of base of first metacarpal S62.233A Encounter type: initial encounter Fracture alignment: nondisplaced Fracture type: open Laterality: left Fracture of second metacarpal bone S62.308A Elevated CK R74.8 Butts Jignesh lesion T14.8XXA Crush injury arm S47.9XXA Polysubstance abuse F19.10
[2024-02-25 11:51] VITALS: RESP 18
[2024-02-25] MEDS: oxyCODONE 5 mg IR Tab/Cap PO (11:51)
[2024-02-25 12:28] VITALS: RESP 18
== END 2024-02-25 12:00 | disposition home or self-care (01) | DRG 906 ==
LOC: ER 20:07 → OR 20:28 → MEDSURG 02-24 03:21
PROVIDERS: Emergency Medicine; Internal Medicine; Admitting Provider Student in an Organized Health Care Education/Training Program; Emergency Provider Emergency Medicine; Visit Provider Student in an Organized Health Care Education/Training Program
PROC: 0PSV34Z Reposition Left Finger Phalanx with Internal Fixation Device, Percutaneous Approach (ICD-10-PCS; principal; 2024-02-23 20:30)
PROC: 0PSV34Z Reposition Left Finger Phalanx with Internal Fixation Device, Percutaneous Approach (ICD-10-PCS; CPT 25000; 2024-02-23 20:30)
PROC: 0PSV34Z Reposition Left Finger Phalanx with Internal Fixation Device, Percutaneous Approach (ICD-10-PCS; 2024-02-23 20:30)
DX: S67.42XA Crushing injury of left wrist and hand, initial encounter (principal); S62.611B Displaced fracture of proximal phalanx of left index finger, initial encounter for open fracture; M62.82 Rhabdomyolysis; S66.822A Laceration of other specified muscles, fascia and tendons at wrist and hand level, left hand, initial encounter; S62.512B Displaced fracture of proximal phalanx of left thumb, initial encounter for open fracture; V84.5XXA Driver of special agricultural vehicle injured in nontraffic accident, initial encounter; S60.212A Contusion of left wrist, initial encounter; F15.10 Other stimulant abuse, uncomplicated; F12.10 Cannabis abuse, uncomplicated
CPT/HCPCS: 36415; 51798; 70450; 71045; 71260; 72125; 72128; 72131; 73090; 73120; 73130; 73200; 74177; 76000; 80048; 80053; 80306; 81001; 82550; 83605; 83735; 84145; 85025; 85610; 86850; 86900; 87040; 90471; 90715; 93005; 96365; 96375; 97116; 97161; 97165; 97530; 99285; C1713; C9113; G0378; J0690; J1100; J1170; J1885; J2371; J2405; J2543; J2704; J2765; J3010; J7030; Q9967

== ENCOUNTER → 2024-03-04 15:40 | Outpatient (BNVA) | payer SELFPAY | PROVIDERS: Visit Provider Physician Assistant | DX: S47.2XXD Crushing injury of left shoulder and upper arm, subsequent encounter; S62.233D Other displaced fracture of base of first metacarpal bone, unspecified hand, subsequent encounter for fracture with routine healing; S62.308D Unspecified fracture of other metacarpal bone, subsequent encounter for fracture with routine healing; X58.XXXD Exposure to other specified factors, subsequent encounter | CPT/HCPCS: 73130 ==

== ENCOUNTER → 2024-04-03 14:49 | Outpatient (BNVA) | payer SELFPAY | PROVIDERS: Visit Provider Physician Assistant | DX: S62.308A Unspecified fracture of other metacarpal bone, initial encounter for closed fracture; S47.9 Crushing injury of shoulder and upper arm, unspecified arm; X58.XXXA Exposure to other specified factors, initial encounter; L08.9 Local infection of the skin and subcutaneous tissue, unspecified | CPT/HCPCS: 73130 ==

== ENCOUNTER 2024-04-04 11:24 | Day surgery (SDC) | payer OTHER, SELFPAY ==
[2024-04-04] VITALS (11 sets, daily range): BP systolic 115–159; BP diastolic 63–102; PULSE 86–104; RESP 12–18; TEMP 36.4–36.6; O2SAT 93–100; BMI 32.3
--- NOTE | 2024-04-04 | XR_ITS ---
WS: [id number] INTRAOPERATIVE TECHNIQUE: 2 Spot fluoroscopic images for intraoperative purposes. FLUOROSCOPY TIME: 10 seconds CLINICAL INFORMATION: [facility] PICS FINDINGS: Fluoroscopy used for intraoperative purposes. XR/XR hand LT 2V [id number] IMPRESSION: Images obtained for intraoperative purposes.
[2024-04-04] MEDS: ketorolac 30 mg/mL INJ IVP (12:11)
[2024-04-04] MEDS: scopolamine 1.5 Patch 1 PATCH TRANSDERMA (12:11)
[2024-04-04] MEDS: acetaminophen 1,000 MG/100 ML PIGGYBACK 400 MG IV (12:12)
--- NOTE | 2024-04-04 12:19 | ECG_ITS ---
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 Measurements Intervals [place] Rate: 89 P: 59 [place]: 158 QRS: -65 QRSD: 70 T: 51 QT: 316 QTc: 385 Interpretive Statements SINUS RHYTHM WITH SINUS ARRHYTHMIA POSSIBLE LEFT ATRIAL ENLARGEMENT [-0.1mV P-WAVE IN V1/V2] POSSIBLE RIGHT VENTRICULAR CONDUCTION DELAY [RSR (QR) IN V1/V2] INFERIOR MYOCARDIAL INFARCTION , PROBABLY OLD [40+ ms Q WAVE AND/OR ST/T ABNORMALITY IN II/aVF] MODERATE T-WAVE ABNORMALITY, CONSIDER LATERAL ISCHEMIA [-0.1+ mV T-WAVE IN I/aVL/V5/V6] Compared to ECG 02/23/2024 16:24:58 T-wave abnormality now present Possible ischemia now present Myocardial infarct finding still present Electronically Signed On 04-04-2024 13:32:14 CDT by Bhargav Mulligan M.D. [id number]
[2024-04-04] MEDS: sodium chloride 0.9% 1,000 ML 30 ML IV (12:34)
--- NOTE | 2024-04-04 12:53 | W.PM.OPSUD ---
Surgery/Procedure H&P Update DATE OF PROCEDURE: April 04, 2024 DATE H&P PERFORMED: 04/03/24 H&P UPDATE INFORMATION: I have reviewed H&P completed within last 30 days, I have examined patient prior to procedure and No changes to prior documentation PREOP DIAGNOSIS: Left hand superficial pin site infection, retained K wire pin PRIMARY INDICATION FOR PROCEDURE: Left hand superficial pin site infection, retained K wire pin PLANNED PROCEDURE: Operation Date: 04/04/24 13:00 Proposed Procedures p Debridement Upper Extremity Left Hand(Left) - Ji Son DO s Perc Pin Removal Left Hand(Left) - Ji Son DO
[2024-04-04] MEDS: clindamycin 900 MG/50 ML PREMIX 100 MG IV (13:20)
--- NOTE | 2024-04-04 13:24 | ANES.PREANE2 ---
Pre-Anesthetic Assessment Height/Weight: Height 1.68 m Weight 90.718 kg Temp Pulse Resp BP Pulse Ox O2 Del Method 97.9 F 104 H 18 159/102 97 Room Air 04/04/24 11:35 04/04/24 11:35 04/04/24 11:35 04/04/24 12:11 04/04/24 11:35 04/04/24 11:35 Preop Diagnosis: Left hand superficial pin site infection, retained K wire pin Operation Date: 04/04/24 13:00 Proposed Procedures p Debridement Upper Extremity Left Hand(Left) - Ji Adelaida, DO s Perc Pin Removal Left Hand(Left) - Ji Adelaida, DO Was Beta Bernabe taken within 24 hours: N/A Last intake: Intake Last Liquid Date 04/03/24 Last Liquid Time 23:30 Last Solid Date 04/03/24 Last Solid Time 23:30 Social Tobacco and No alcohol Airway Submandibular: within normal limits Cervical ROM: within normal limits Mallampati: Class I Pulmonary Chronic Obstructive Pulmonary Disease CV/HEM Arrythmia Anesthetic Plan ASA status: 3 Anesthesia: General Medications/Allergies Home Medications Medication Instructions Recorded Confirmed Last Taken Type ibuprofen 800 mg tablet 800 mg PO Q8H PRN pain #30 tabs 03/04/24 04/04/24 04/04/24 Rx left wrist thermopastic volar #1 ea 03/04/24 04/04/24 Unknown Rx splint hydrocodone 5 mg-acetaminophen 325 1 tab PO Q6H PRN pain 5 days #20 04/02/24 04/04/24 04/03/24 Rx mg tablet tabs clindamycin HCl 150 mg capsule 300 mg (2 x 150 mg) PO TID 7 days 04/03/24 04/04/24 Unknown Rx #42 caps Allergies Allergy/AdvReac Type Severity Reaction Status Date / Time cefazolin Allergy ADR-Vomitin Verified 04/04/24 12:06 g Current Medications Generic Name Dose Route Start Last Admin Trade Name Freq PRN Reason Stop Dose Admin Sodium Chloride 1,000 mls @ 30 mls/hr 04/04/24 12:15 04/04/24 12:34 Sodium Chloride 0.9% IV 04/05/24 12:14 30 mls/hr .Q24H BERTRAM Administration PFSH Anesthesia Social History Smoking and tobacco/nicotine status: current every day tobacco/nicotine user Data Anesthesia Cardiac Studies: No Data to Display
[2024-04-04] MEDS: ROPivacaine 0.5% SDV 30 mL 150 MG INJECTION (13:51)
[2024-04-04] MEDS: lidocaine 1% INJ 10 mL (per mL) XX (13:52)
--- NOTE | 2024-04-04 14:01 | P.BOP_ITS ---
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 Localized superficial infection was noted this did not track deep into the bone. Wound was ellipticized out to clean healthy tissue pin was subsequently removed thorough irrigation performed. Cultures were taken of the superficial abscess. Patient tolerated procedure procedure without issues or complications patient placed in a soft dressing x-rays were taken to confirm healing of the fracture as well as confirm pin removal and patient was taken to PACU in stable condition. Estimated blood loss: 2 mL Specimen(s) removed: K wire pin removed, cultures aerobic and anaerobic taken of the subcutaneous tissue Post-operative diagnosis: Left hand superficial pin site infection with retained K wire
--- NOTE | 2024-04-04 14:03 | PM.OP ---
Operative Report Date of procedure: April 04, 2024 Pre-op diagnosis: Left hand superficial pin site infection, retained K wire Post-op diagnosis: Same Procedure done: Left hand irrigation and debridement (2.5 cm x 1 cm x 0.5 cm) Left hand pin removal Specimens removed/disposition: Aerobic and anaerobic cultures taken of the subcutaneous superficial abscess around pin site Surgeon: Ji Son DO Anesthesia: General and Local Estimated blood loss: 2 mL 14 minutes IV fluids: See anesthesia record Complications: None Findings: See operative report narrative Condition: stable Disposition: same day Brief History: Patient is a 59-year-old gentleman who had sustained a crush injury to the arm underwent irrigation and debridement as well as K wire pin placement. He had missed some appointments and when the K wire was supposed to be removed, hypertrophic skin and growing up over pin site unable to be identified in the office there was some localized erythema and subtle fluctuance decision was made that point I take patient back to the OR for an I&D and pin removal. We talked about this in detail as far as respites complication alternatives of surgery and through shared decision-making patient like to proceed with surgical intervention. All questions answered at this time. Procedure: Patient was seen evaluate in the preoperative holding area. Consent was reviewed and signed with patient. Correct extremities and subsequently marked. Patient was then seen evaluated by anesthesia once cleared for surgery was taken back to the operative suite placed was kept on [facility] armboard applied to left upper extremity underwent anesthesia per the anesthesia part was a probably anesthetized nonsterile tourniquet applied left upper arm. Patient left upper extremity was then prepped and draped in orthopedic fashion. Final timeout performed. Patient received appropriate preoperative antibiotics. Esmarch tourniquet was used exsanguinate the left upper extremity tourniquet was inflated 250 mmHg. Patient had a small wound directly over where the pin site/pin was placed on the dorsal and radial aspect of the hand near the base of the second metacarpal. The previous subtle draining wound was then subsequently ellipticized and immediately encountered the K wire. There is subtle amount of purulence just superficially underneath the subcutaneous tissue. I subsequently utilized aerobic and anaerobic cultures of this and these were sent for microbiology. I then subsequently removed the K wire atraumatically. I then subsequent brought in C arm and took the hand through multiple orthogonal images and lie fluoroscopic imaging which showed healed fracture. At this point in time I then subsequently utilized a rongeur and scalpel to sharply excise all nonviable tissue of skin and subcutaneous tissue fat and fascia. There was no tracking deep into the bone. This was very superficial in nature. Once this was taken to vital tissue I then thoroughly irrigated the wound bed with 3 L of normal saline with gravity cystoscopy tubing. Once this was all performed performed tourniquet was deflated hemostasis was satisfactory with bipolar electrocautery and then subsequently closed this with standard 3-0 nylon interrupted fashion. This closed without any issues or complications were then placed in a bulky soft dressing of Xeroform 4 x 4's Curlex and an Jacinto wrap. Patient was then awake from anesthesia and taken to PACU in stable condition. Disposition: Patient taken to PACU in stable condition recovering well will receive appropriate discharge structure as well as pain medication postoperatively. Will also continue his antibiotics which we prescribed for him just yesterday. Will continue to monitor his intraoperative cultures. He will follow-up with us in the office in 2 weeks. Patient understands agrees to current plan. Questions answered.
--- NOTE | 2024-04-04 14:44 | ANE.PACU2 ---
Inpatient post-anesthesia follow up: Airway intact: Yes Vital signs: Temperature 97.6 F Pulse Rate 86 Respiratory Rate 18 Blood Pressure 131/79 Pulse Oximetry 93 Oxygen Delivery Me thod Room Air Oxygen Flow Rate 8 Fraction of Inspir ed Oxygen Hydration adequate: Yes Nausea and vomiting: No Pain level: 3 Mental status: Baseline
== END 2024-04-04 15:05 | disposition home or self-care (01) ==
PROVIDERS: Visit Provider Student in an Organized Health Care Education/Training Program
PROC: (CPT 20670; principal; 2024-04-04 13:00)
PROC: (CPT 20670; 2024-04-04 13:00)
DX: T84.84XA Pain due to internal orthopedic prosthetic devices, implants and grafts, initial encounter (principal); J44.9 Chronic obstructive pulmonary disease, unspecified; F17.210 Nicotine dependence, cigarettes, uncomplicated; F17.200 Nicotine dependence, unspecified, uncomplicated
CPT/HCPCS: 20670; 73120; 76000; 87070; 87075; 87077; 87186; 87205; 93005; J0131; J1170; J1885; J2405; J2704; J2795; J3010; J3490; J7030